=== PATIENT | female | born 2005 | race Caucasian/White ===

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

== ENCOUNTER 2024-10-29 12:57 | Emergency (ER) | payer OTHER, SELFPAY ==
[2024-10-29 12:58] VITALS: BP 127/72; PULSE 107; RESP 19; TEMP 37.2; O2SAT 96; BMI 21.7
[2024-10-29 13:09] LABS: Coronavirus 19, PCR Not Detected (NotDetected); Influenza B, PCR Not Detected (NotDetected)
--- NOTE | 2024-10-29 13:12 | ED_ITS ---
<Statement entered by Chato Lake MD - 10/29/24 14:54> I was consulted by the SANDI, and we discussed the complexity of the problems being addressed. I approved the treatment and management plan for this patient's care in the emergency department, thus performing a substantive portion of the medical decision making. Chato Lake MD Discharge Plan Disposition Patient Disposition: Home, Self-Care Condition: Good Prescriptions Prescriptions: New oseltamivir [Tamiflu] 75 mg capsule 75 mg PO BID 5 Days Qty: 10 0RF No Action mupirocin 2 % ointment 1 applic topical TID 7 Days Qty: 15 0RF Referrals Follow up/Referrals: Hood Oliva MD [Primary Care Provider] - See instructions Activity Restrictions/Add. Instructions Additional Instructions/Restrictions: We will call you with your swab results. Continue taking Tylenol alternating with Motrin for symptoms. Return for any worsening signs or symptoms including shortness of breath difficulty breathing low oxygen. Clinical Impressions Clinical Impression: Influenza A Print Language Print Language: Bengali Discharge ED Provider: Chato Lake General Adult HPI General Chief complaint: Upper Respiratory Infection Stated complaint: body aches,fever,chills,lightheaded,cough Time Seen by Provider: 10/29/24 13:04 Mode of Arrival: Ambulatory Source of Information: Patient Limitations: No Limitations Description of Symptoms (Recalled from ER Triage Doc. by RN): pt presents to ED with c/o flu like symptoms. ongoing for 2 days. pt reports body aches, fever, chills, cough. pt requesting flu test and tamiflu is positive. History of Present Illness HPI narrative: Patient presents for evaluation of respiratory tract infection symptoms. Patient has 2 days of headache body aches fever greater than 100 chills and dry cough. Patient has not been known to be exposed to flu but does wish to do swab. She denies any cardiac chest pain increased work of breathing nausea vomiting or diarrhea. Related Data Previous Rx's ?Medication ?Instructions ?Recorded mupirocin 2 % topical ointment 1 applic topical TID 7 days #15 03/10/24 grams oseltamivir 75 mg capsule (Tamiflu) 75 mg PO BID 5 days #10 caps 10/29/24 Allergies Allergy/AdvReac Type Severity Reaction Status Date / Time No Known Allergies Allergy Verified 03/10/24 08:36 [facility] Disclaimer: The information contained in this section may have been updated after the patient was seen, as this information can be updated by other users. Medical History (Updated 10/29/24 @ 14:27 by GIGI Cox) Folliculitis Social History Smoking Status: Current every day smoker alcohol intake: current alcohol intake frequency: holidays/special occasions only substance use type: denies use current occupational status: student Travel in the last 8 weeks: None Have you lived/traveled outside [place] in past 30 days?: No Contact w/someone who lives/traveled outside [place] past 30 days?: No Exposure to someone with infectious disease in past 14 days?: No Do you have a fever (greater than 100.4 F or 38 C)?: Yes Have you tested positive for COVID-19: No Exposed to someone with COVID-19 in past 14 days?: No Do you have a sore throat?: No Do you have a cough?: Yes Do you have any weakness?: No Do you have any diarrhea?: No Are you experiencing any unusual bleeding?: No Do you have any muscle aches/pain?: Yes Do you have any abdominal pain?: No Are you experiencing loss of taste or smell?: No Other Medical History Have you received the Pneumonia Vaccine: No ROS Obtained: Yes Systems reviewed as appropriate & no additional complaints except as documented Physical Exam General General appearance: alert and in no apparent distress Respiratory Respiratory exam: Present normal lung sounds bilaterally Cardiovascular Cardiovascular exam: Present regular rate Neurological Exam Neurological exam: Present alert and oriented X3 Lymphatic Lymphatic Findings: no adenopathy Medical Decision Making Medical Records Medical records reviewed: Yes I reviewed the patient's medical records. Screening: Per USPSTF and CDC recommendations, given the prevalence of disease in our region, it is our hospital?s policy to screen for HIV and viral Hepatitis for all patients aged 18 and over and those with ongoing risk factors. Joshua Inquiry Pt receiving controlled substance: No Vital Signs: 10/29/24 12:58 10/29/24 13:26 Temperature 99.0 F 98.6 F Temperature Source Oral Oral Pulse Rate 105 H Pulse Rate [Left Radial] 107 H Respiratory Rate 19 18 Blood Pressure 118/74 Blood Pressure [Right Arm] 127/72 Blood Pressure Mean [Right Arm] 90 02 Sat by Pulse Oximetry 96 Oxygen Delivery Method Room Air Lab Data Lab results reviewed: Yes I reviewed the patient's lab results. Lab Results 10/29/24 13:00: SARS-CoV-2 (PCR) Not detected, Influenza A Untype (PCR) Detected A, Influenza Type B (PCR) Not detected Orders (Tests/Meds): ED MEDICATIONS Discontinued Medications Generic Name Dose Route Start Last Admin Trade Name Eladio PRN Reason Stop Dose Admin Acetaminophen 1,000 mg 10/29/24 13:12 10/29/24 13:18 Acetaminophen 500mg Tab PO 10/29/24 13:13 1,000 mg ONCE ONE Administration Ibuprofen 800 mg 10/29/24 13:14 10/29/24 13:20 Ibuprofen 800 Mg Tablet PO 10/29/24 13:15 800 mg ONCE ONE Administration ORDERS Category Date Time Status Rapid PCR Covid and Flu A/B Stat Lab 10/29/24 13:00 Completed Medical Decision Narrative: In summary patient is a 19-year-old female who presents to the emergency department for evaluation of respiratory tract infection. Patient is initially normotensive on arrival at 127/72 but tachycardic at 107 upon arrival, with a temperature of 99.0 currently. Physical exam shows clear breath sounds with no increased work of breathing or adventitious sounds and a dry hacking cough. Posterior pharynx shows no exudate there is no cervical lymphadenopathy.. Differential diagnosis includes viral or bacterial upper respiratory tract infection. Initial workup will be conducted with COVID and flu swabs. Initial interventions include Tylenol Motrin. Initial workup was pending and I had interactive discussion and via patient directed decision making we will call her with the results and make medicine recommendations at that time. Patient's respiratory panel was positive for influenza A. Patient personally notified by myself. Had interactive discussion with the patient the risks and benefits of Tamiflu and via patient directed decision making she would like for me to call in Tamiflu to the clinic pharmacy which I will do. Critical Care Critical Care Time Critical Care Time: No
[2024-10-29] MEDS: ACETAMINOPHEN 500MG TAB 1000 MG PO (13:18)
[2024-10-29] MEDS: IBUPROFEN 800 MG TABLET PO (13:20)
[2024-10-29 13:26] VITALS: BP 118/74; PULSE 105; RESP 18; TEMP 37
[2024-10-29 14:14] LABS: Influenza A, PCR Detected (NotDetected)
== END 2024-10-29 13:27 | disposition home or self-care (01) ==
PROVIDERS: Emergency Provider Emergency Medicine; PCP Family Medicine
DX: J10.1 Influenza due to other identified influenza virus with other respiratory manifestations (principal); R50.9 Fever, unspecified; M79.10 Myalgia, unspecified site; R05.9 Cough, unspecified; R42 Dizziness and giddiness
CPT/HCPCS: 87636; 99283